=== PATIENT | female | born 1990 | race Caucasian/White ===

== ENCOUNTER 2017-04-25 14:37 | Emergency (ER) | payer OTHER, SELFPAY | END 2017-04-25 16:15 | disposition home or self-care (01) | PROVIDERS: Emergency Provider Nurse Practitioner Family; Family Provider Internal Medicine; Visit Provider Nurse Practitioner Family | DX: J20.9 Acute bronchitis, unspecified (principal) | CPT/HCPCS: 99201 ==

== ENCOUNTER 2017-05-14 16:22 | Emergency (ER) | payer OTHER, SELFPAY ==
[2017-05-14 17:07] VITALS: BP 113/62; PULSE 65; RESP 20; TEMP 36.6; O2SAT 100; BMI 22.2
--- NOTE | 2017-05-14 17:29 | HMH.EDUTC ---
[facility] [place] Disposition Clinical Impression: Sinusitis Qualifiers: Sinusitis location: other Chronicity: unspecified Qualified Code(s): J32.9 - Chronic sinusitis, unspecified Disposition: Home, Self-Care Condition on Discharge: Good Instructions: Sinusitis, Sinus Headache, DI for Sinusitis Additional Instructions: Start antibiotic. Sinus infections may take 2-3 days to notice much improvement so be sure to use conservative measures as discussed for symptoms Flonase 2 spray in each nostril daily to help with nasal congestion, sinus an ear pressure/inflammation Lots of Fluids Sleep elevated Humidifer/vaporizer Augmentin can cause GI effects. Probiotics may help to prevent these symptoms Prescriptions: Amoxicillin/Potassium Clav [Augmentin 875-125 Tablet] 1 tab PO Q12H #14 tab Fluticasone Propionate [Flonase 50mcg nasal spray 16gm] 2 spr NS DAILY #1 bottle predniSONE [Prednisone 20mg Tab] 20 mg PO BID #10 tab Referrals: Nikko Victor [Primary Care Provider] - Time of Disposition: 17:41 Medical Decision Making Vital Signs: 05/14/17 17:07 Temperature 97.9 F Temperature Source Temporal Artery Scan Pulse Rate [Brachial] 65 Respiratory Rate 20 Blood Pressure [Right Arm] 113/62 Blood Pressure Mean [Right Arm] 79 Blood Pressure Source [Right Arm] Automatic Cuff Blood Pressure Position [Right Arm] Sitting 02 Sat by Pulse Oximetry 100 Oxygen Delivery Method Room Air - Ty Inquiry Pt receiving controlled substance: No Ty was queried for this patient: No [facility] [place] HPI - General Stated complaint: Sinus pressure, swelling, pain Mode of Arrival: Ambulatory Source of Information: Patient Limitations: No Limitations Description of Symptoms (Recalled from Triage Doc. by RN): SEVERE SINUS PRESSURE, H/A, EAR PAIN, OVER 1 WEEK HEENT Symptoms (Recalled from RN notes): Yes Resp Symptoms (Recalled from RN notes): No Skin Symptoms (Recalled from RN notes): No MS Symptoms (Recalled from RN notes): No Functional Status (Recalled from RN notes): NA - History of Present Illness Provider Complaint: Patient state that she has been having sinus pain and pressure now for several weeks State that she thought it was starting to get better but then it returned and was worse than in the begining States that she is having pain and pressure in her sinuses State that she feels the pressure in her ears, teeth and behind her eyes - Related Data Previous Rx's Medication Instructions Recorded Amoxicillin/Potassium Clav 1 tab PO Q12H #14 tab 05/14/17 [Augmentin 875-125 Tablet] Fluticasone Propionate [Flonase 2 spr NS DAILY #1 bottle 05/14/17 50mcg nasal spray 16gm] predniSONE [Prednisone 20mg 20 mg PO BID #10 tab 05/14/17 Tab] Allergies Allergy/AdvReac Type Severity Reaction Status Date / Time No Known Allergies Allergy Verified 05/14/17 17:12 - Worker's Comp Is this a Worker's Comp case?: No [facility] History I have reviewed the patient's past medical history: Yes Medical History: Denies:: Cancer, Diabetes Mellitus Type 1, Diabetes Mellitus Type 2, MRSA Other Surgeries: Yes: Other (loop recorder implanted 2016) Amputation: No - *Social History Smoking Status: Never smoker Alcohol Intake: never - Psychiatric History Expresses thoughts of harming self/others: None Suicide Plan Description: No Plan *Family Hx:: Non-contributory ROS Obtained: Yes All systems reviewed & no additional complaints - ENT Ears, Nose, Mouth, and Throat: Reports sinus pain, Reports sinus pressure Physical Exam - General General appearance: alert, in no apparent distress - Expanded ENT Exam Nose exam: Present: sinus tenderness, other (complains of pressure like feeling in ears, eyes and pain in upper teeth, tenderness maxilary sinus) - Respiratory Respiratory exam: Present: normal lung sounds bilaterally. Absent: respiratory distress - Cardiovascular Cardiovascular exam: Present: regular rate, normal rhythm. Absent:
--- NOTE | 2017-05-14 17:33 | ED_ITS ---
[facility] [place] Disposition Clinical Impression: Sinusitis Qualifiers: Sinusitis location: other Chronicity: unspecified Qualified Code(s): J32.9 - Chronic sinusitis, unspecified Disposition: Home, Self-Care Condition on Discharge: Good Instructions: Sinusitis, Sinus Headache, DI for Sinusitis Additional Instructions: Start antibiotic. Sinus infections may take 2-3 days to notice much improvement so be sure to use conservative measures as discussed for symptoms Flonase 2 spray in each nostril daily to help with nasal congestion, sinus an ear pressure/inflammation Lots of Fluids Sleep elevated Humidifer/vaporizer Augmentin can cause GI effects. Probiotics may help to prevent these symptoms Prescriptions: Amoxicillin/Potassium Clav [Augmentin 875-125 Tablet] 1 tab PO Q12H #14 tab Fluticasone Propionate [Flonase 50mcg nasal spray 16gm] 2 spr NS DAILY #1 bottle predniSONE [Prednisone 20mg Tab] 20 mg PO BID #10 tab Referrals: Nikko Victor [Primary Care Provider] - Time of Disposition: 17:41 Medical Decision Making Vital Signs: 05/14/17 17:07 Temperature 97.9 F Temperature Source Temporal Artery Scan Pulse Rate [Brachial] 65 Respiratory Rate 20 Blood Pressure [Right Arm] 113/62 Blood Pressure Mean [Right Arm] 79 Blood Pressure Source [Right Arm] Automatic Cuff Blood Pressure Position [Right Arm] Sitting 02 Sat by Pulse Oximetry 100 Oxygen Delivery Method Room Air - Ty Inquiry Pt receiving controlled substance: No Ty was queried for this patient: No [facility] [place] HPI - General Stated complaint: Sinus pressure, swelling, pain Mode of Arrival: Ambulatory Source of Information: Patient Limitations: No Limitations Description of Symptoms (Recalled from Triage Doc. by RN): SEVERE SINUS PRESSURE , H/A, EAR PAIN, OVER 1 WEEK HEENT Symptoms (Recalled from RN notes): Yes Resp Symptoms (Recalled from RN notes): No Skin Symptoms (Recalled from RN notes): No MS Symptoms (Recalled from RN notes): No Functional Status (Recalled from RN notes): NA - History of Present Illness Provider Complaint: Patient state that she has been having sinus pain and pressure now for several weeks State that she thought it was starting to get better but then it returned and was worse than in the begining States that she is having pain and pressure in her sinuses State that she feels the pressure in her ears, teeth and behind her eyes - Related Data Previous Rx's Medication Instructions Recorded Amoxicillin/Potassium Clav 1 tab PO Q12H #14 tab 05/14/17 [Augmentin 875-125 Tablet] Fluticasone Propionate [Flonase 2 spr NS DAILY #1 bottle 05/14/17 50mcg nasal spray 16gm] predniSONE [Prednisone 20mg 20 mg PO BID #10 tab 05/14/17 Tab] Allergies Allergy/AdvReac Type Severity Reaction Status Date / Time No Known Allergies Allergy Verified 05/14/17 17:12 - Worker's Comp Is this a Worker's Comp case?: No [facility] History I have reviewed the patient's past medical history: Yes Medical History: Denies:: Cancer, Diabetes Mellitus Type 1, Diabetes Mellitus Type 2, MRSA Other Surgeries: Yes: Other (loop recorder implanted 2016) Amputation: No - *Social History Smoking Status: Never smoker Alcohol Intake: never - Psychiatric History Expresses thoughts of harming self/others: None Suicide Plan Description: No Plan *Fam
== END 2017-05-14 17:48 | disposition home or self-care (01) ==
PROVIDERS: Emergency Provider Nurse Practitioner; Family Provider Internal Medicine; PCP Internal Medicine
DX: J32.9 Chronic sinusitis, unspecified (principal)
CPT/HCPCS: 99202

== ENCOUNTER → 2017-10-20 08:25 | Outpatient (CLI) | payer BC, SELFPAY ==
--- NOTE | 2017-10-20 08:29 | US_ITS ---
US abdomen limited History:Right upper quadrant pain Ordering Physician:Nikko Victor Patient Age: 27 years Comparison:None Findings: Pancreas:Unremarkable. No obvious mass or abnormal fluid collection. No ductal dilatation Liver:No focal liver lesions demonstrated. Homogeneous echogenicity. No intrahepatic biliary ductal dilatation evident Right Kidney:Unremarkable. Normal size and echogenicity. No hydronephrosis Gallbladder:No gallstones, gallbladder wall thickening, pericholecystic fluid, or biliary dilatation. Impression:Negative gallbladder/right upper quadrant ultrasound
== END ==
PROVIDERS: Family Provider Internal Medicine; PCP Internal Medicine; Visit Provider Internal Medicine
DX: R10.11 Right upper quadrant pain (principal)
CPT/HCPCS: 76705

== ENCOUNTER → 2017-12-14 15:25 | Outpatient (CLI) | payer BC, SELFPAY | PROVIDERS: PCP Internal Medicine; Visit Provider Internal Medicine | DX: M53.3 Sacrococcygeal disorders, not elsewhere classified (principal) ==

== ENCOUNTER → 2019-04-12 10:12 | Outpatient (CLI) | payer BC, SELFPAY ==
--- NOTE | 2019-04-12 10:20 | CT_ITS ---
PROCEDURE: CT ABDOMEN PELVIS WO CON CLINICAL INDICATION: LLQ PAIN Intermittent lower abdominal pain the COMPARISON: ABDPELW/O CT ABD PELVIS W/O CONTRAST from 03/10/2014 PTV US PELVIS-TRANSVAGINAL ONLY from 02/21/2016 ABDLM US abdomen limited from 10/20/2017 TECHNIQUE: Axial images obtained with sagittal and coronal reformats. All CT scans at the facility use one or more dose reduction, viz: automated exposure control, ma/kV adjustment per patient size (including targeted exams where dose is matched to indication, i.e. head), or iterative reconstruction technique. FINDINGS: LOWER THORAX: No acute finding ABDOMEN & PELVIS: The liver, spleen, adrenal glands, pancreas, kidneys, and gallbladder have an unremarkable unenhanced appearance. No evidence of appendicitis. No ureteral or renal calculi. No evidence of diverticulitis. There is an IUD in place. In the right adnexal region there is a 6.7 x 3.6 cm cystic area which is contiguous with the right and posterior aspect of the urinary bladder. What appears to represent a normal ovary is present anterior to this region. This may represent a prominent bladder diverticulum having a similar appearance on 03/10/2014. This could be confirmed with repeat exam with IV contrast with delayed images/CT urogram. No intestinal obstruction or free air. There is a mild amount of retained colonic feces. IMPRESSION: 1. No acute finding. 2. Probable prominent bladder diverticulum on the right. 3. Mild amount of retained colonic feces Dictated by: Errol Rhodes MD 04/12/2019 15:40 Electronically signed by Errol Rhodes MD in [place] 04/12/2019 15:40
== END ==
PROVIDERS: PCP Internal Medicine; Visit Provider Internal Medicine
DX: R10.32 Left lower quadrant pain (principal)
CPT/HCPCS: 74176

== ENCOUNTER 2021-07-04 08:59 | Emergency (ER) | payer BC, SELFPAY ==
[2021-07-04] VITALS (9 sets, daily range): BP systolic 98–128; BP diastolic 62–86; PULSE 44–53; RESP 13–18; TEMP 36.8–36.9; O2SAT 96–100; BMI 25.5
--- NOTE | 2021-07-04 09:16 | ECG_ITS ---
APPROVED REPORT Exam: Resting ECG HR:40 bpm ECG Measurements Heart Rate 40 AXES QRSd 86 QRS 68 QT 464 T 66 QTc 397 Conclusion Sinus bradycardia Incomplete right bundle branch block, unchanged from prior. UNCONFIRMED REPORT Electronically signed by : Geoffrey Samayoa MD 07/05/2021 16:04:21
--- NOTE | 2021-07-04 09:18 | XR_ITS ---
FINAL REPORT CLINICAL HISTORY: chest pain, palpitations FINDINGS: The heart size is normal. The mediastinum is normal. There is no focal infiltrate or edema. There are no pleural effusions. There is no pneumothorax. There is no osseous abnormality. IMPRESSION: No acute cardiopulmonary process Reviewed, Interpreted and Dictated by Simone Reid III, MD Transcribed by jAay Rocha Authenticated by Simone Reid III, MD on 07/04/2021 10:00:54 AM [facility]
--- NOTE | 2021-07-04 09:34 | PC.NURSE ---
pt to xray
--- NOTE | 2021-07-04 09:43 | HMH.EDDIZZ ---
ED Disposition Clinical Impression: Symptomatic bradycardia Disposition: Home, Self-Care Condition on Discharge: Good Instructions: DI for Bradycardia Referrals: Nikko Victor [Primary Care Provider] - Stefan Burkett MD [Staff Physician] - - Critical Care Critical Care Time: No Attestation: On 07/04/21, the high probability of a clinically significant, sudden or life threatening deterioration of the following system(s) required my full and direct attention, intervention and personal management. The time I documented below is in addition to time spent performing reported procedures but includes the following listed in this critical care notation. Medical Decision Making - Medical Records Medical records reviewed: Yes: I reviewed the patient's medical records. - Ty Inquiry Pt receiving controlled substance: No Vital Signs: 07/04/21 09:13 07/04/21 09:30 07/04/21 09:33 Temperature 98.5 F 98.2 F Temperature Source Oral Oral Pulse Rate 46 L Pulse Rate [Left] 48 L 53 L Respiratory Rate 18 16 16 Blood Pressure 109/72 L Blood Pressure [Right Arm] 128/86 128/70 Blood Pressure Mean 88 Blood Pressure Mean [Right Arm] 100 89 Blood Pressure Source [Right Arm] Automatic Cuff Blood Pressure Position [Right Arm] Sitting 02 Sat by Pulse Oximetry 100 100 100 Oxygen Delivery Method Room Air 07/04/21 10:00 07/04/21 10:31 07/04/21 11:00 Temperature Temperature Source Pulse Rate 44 L 52 L 44 L Pulse Rate [Left] Respiratory Rate 16 14 13 Blood Pressure 105/69 L 112/64 98/62 L Blood Pressure [Right Arm] Blood Pressure Mean 79 Blood Pressure Mean [Right Arm] Blood Pressure Source [Right Arm] Blood Pressure Position [Right Arm] 02 Sat by Pulse Oximetry 100 99 98 Oxygen Delivery Method 07/04/21 11:30 Temperature Temperature Source Pulse Rate 53 L Pulse Rate [Left] Respiratory Rate 15 Blood Pressure 111/65 Blood Pressure [Right Arm] Blood Pressure Mean Blood Pressure Mean [Right Arm] Blood Pressure Source [Right Arm] Blood Pressure Position [Right Arm] 02 Sat by Pulse Oximetry 100 Oxygen Delivery Method - Lab Data Lab Results 07/04/21 09:30: WBC 6.0, RBC 4.85, Hgb 15.1, Hct 46.9, MCV 96.7, MCH 31.2, MCHC 32.2, RDW 13.4, Plt Count 261, MPV 9.3, Neut % (Auto) 63.7, Lymph % (Auto) 27.5, [place] % (Auto) 5.2, Eos % (Auto) 2.1, Baso % (Auto) 1.4, Neut # (Auto) 3.8, Lymph # (Auto) 1.7, [place] # (Auto) 0.3, Eos # (Auto) 0.1, Baso # (Auto) 0.1 07/04/21 09:30: Sodium 139, Potassium 4.0, Chloride 104, Carbon Dioxide 26, Anion Gap 13.0, BUN 12, Creatinine 0.80, Estimated Creat Clear 129, Estimated GFR 83, Est GFR ( Amer) 101, Glucose 95, Calcium 9.0, Total Bilirubin 0.5, AST 36, ALT 18, Alkaline Phosphatase 50, Troponin I < 0.01, NT-Pro-B Natriuret Pep 86.2, Total Protein 7.5, Albumin 4.8, Globulin 2.7, Albumin/Globulin Ratio 1.8 Result diagrams: 07/04/21 09:30 07/04/21 09:30 Orders (Tests/Meds): ED MEDICATIONS Generic Name Dose Route Start Last Admin Trade Name Freq PRN Reason Stop Dose Admin Sodium Chloride 10 ml 07/04/21 09:25 Sodium Chloride 0.9% 10ml Flush Syringe IV 08/03/21 09:24 NEEDED PRN Maintain IV Site ORDERS Category Date Time Status CA 30 day event monitor Stat Exams 07/04/21 12:03 Ordered Troponin I Q3H Lab 07/04/21 12:30 Ordered Troponin I Q3H Lab 07/04/21 15:30 Ordered - Radiology Data #1 Image(s): Chest Image Reviewed: Yes I reviewed the patient's radiology results, Yes I reviewed the patient's radiology image, Yes I have reviewed radiologist's interpretation - ECG Data Tracing #1 I reviewed this ECG and interpreted as documented below: Bradycardic rate of 40 bpm, normal QTC. Irregular rhythm with slow ventricular response. ECG initial impression date: 07/04/21 ECG initial impression time: 09:16 - Reevaluation(s) Time: 12:12 Reevaluation #1: On reevaluation, patient is
[2021-07-04 09:49] LABS: Basophils # 0.1 K/mm3 (0-0.2); Basophils % 1.4 % (0.1-2.0); Eosinophils # 0.1 K/mm3 (0.0-0.4); Eosinophils % 2.1 % (0.1-12.0); Hematocrit 46.9 % (37.0-47.0); Hemoglobin 15.1 g/dL (12.2-16.2); Lymphocytes # 1.7 K/mm3 (0.7-4.5); Lymphocytes % 27.5 % (10-50); Mean Corpuscular HGB Conc 32.2 g/dL (31.8-35.4); Mean Corpuscular Hemoglobin 31.2 pg (27.0-31.2); Mean Corpuscular Volume 96.7 fl (81-99); Mean Platelet Volume 9.3 fl (7.4-10.4); Monocytes # 0.3 K/mm3 (0.1-1.0); Monocytes % 5.2 % (1.7-9.3); Neutrophils # 3.8 K/mm3 (1.8-7.8); Neutrophils % 63.7 % (37.0-80.0); Platelet Count 261 K/mm3 (142-424); Red Blood Count 4.85 M/mm3 (4.20-5.40); Red Cell Distribution Width 13.4 % (11.5-17.5)
[2021-07-04 09:53] LABS: Alanine Aminotransferase 18 U/L (12-78); Albumin Level 4.8 g/dl (3.5-5.0); Albumin/Globulin Ratio 1.8 (1.1-1.8); Alkaline Phosphatase 50 U/L (38-126); Aspartate Amino Transferase 36 U/L (14-36); Bilirubin,Total 0.5 mg/dl (0.2-1.3); Blood Urea Nitrogen 12 mg/dl (7-17); Carbon Dioxide 26 mmol/L (22.0-30.0); Chloride 104 mmol/L (98-107); Creatinine Clearance Estimated 129 mL/min (50-200); Estimated Glomerular Filt Rate 83 ml/min (>60); GFR (African American) 101 ML/MIN (>60); Globulin 2.7 g/dL (1.3-3.2); Glucose 95 mg/dl (74-100); Sodium 139 mmol/L (136-145); Total Protein,Serum 7.5 g/dl (6.3-8.2)
[2021-07-04 10:05] LABS: NT Pro Brain Natriuretic Pep. 86.2 pg/mL (0-125)
[2021-07-04 10:07] LABS: Troponin I < 0.01 ng/ml (0.00-0.034)
--- NOTE | 2021-07-04 10:36 | PC.NURSE ---
cardiology called for consult, they are to come see her
--- NOTE | 2021-07-04 10:47 | PC.NURSE ---
pt given warm blankets, pt states no other needs at this time
--- NOTE | 2021-07-04 11:00 | PC.NURSE ---
marisol thrasher called down returning called, notified her of pt, states she will be down soon as she can, she has consults on the floor also
--- NOTE | 2021-07-04 11:55 | PC.NURSE ---
vitor thrashern at [facility]
--- NOTE | 2021-07-04 12:01 | PC.NURSE ---
notifed RT that per marisol thrasher she is going to be ordering an 30 day event monitor for pt, RT states they are going to check availability call me back
--- NOTE | 2021-07-04 12:03 | PC.NURSE ---
RT states they do have an event monitor, states to send pt to their department upon d/c from ED to get monitor on
--- NOTE | 2021-07-04 12:03 | HMH.CNCARD ---
History of Present Illness Consult date: 07/04/21 Requesting physician: Darryl Calderon Chief complaint: dizziness History of present illness: This is a 30-year-old white female who presented to the emergency department with complaints of dizziness and an abnormal heart rate. She states that this started around 8 PM last night while she was driving. She states she had sudden onset of dizziness and felt as if her heart were skipping beats. She states that this persisted through the night and was still going on this morning so she decided to come to the emergency department here at [facility]. The patient is a cardiology patient for a history of POTS. She is currently taking bisoprolol 2.5 mg daily. She states that she has noticed that her heart rate has been running on the low side. She previously had a loop recorder in place but this has since been removed. She denies any chest pain or pressure. She denies any shortness of breath or edema. She denies any fever, chills, nausea, vomiting, diarrhea, PND orthopnea. He states that she just feels like her heart is beating slow and it was not beating correctly. On arrival here at [facility] her heart rate is low with a minimum heart rate down to 40 to 44 bpm. [facility] History I have reviewed the patient's past medical history: Yes Medical History: Reports:: Cancer, Palpitations Denies:: Diabetes Mellitus Type 1, Diabetes Mellitus Type 2, MRSA *Have you ever received a pneumonia vaccine?: No *Have you received a flu vaccine this season?: No Comment:: POTS Laterality Cases: Bilateral: Tonsillectomy Other Surgeries: Yes: No Previous Surgery, , Other Amputation: No Fractures: No - *Social History Smoking Status: Former smoker Alcohol Intake: never Alcohol Intake Frequency:: other Substance Use Type: denies use *Occupational Status:: employed Household Members: spouse *Travel in the last 8 weeks: None Family Hx:: Cancer, Diabetes, Hypertension, Hyperlipidemia Meds Home Medications Medication Instructions Recorded Confirmed Type nebivolol 2.5 mg tablet 2.5 mg PO DAILY 12/24/18 04/04/21 History Saccharomyces boulardii 250 mg 250 mg PO BID 07/06/19 04/04/21 History capsule norethindrone 1 mg-ethinyl 1 tab PO DAILY #28 tab 06/12/21 Rx estradiol 20 mcg (21)-iron 75 mg (7) tablet Allergies Allergy/AdvReac Type Severity Reaction Status Date / Time No Known Allergies Allergy Verified 04/04/21 10:08 Exam Vital signs and Labs for Last 24 Hours: Temp Pulse Resp BP Pulse Ox 98.2 F 53 L 15 111/65 100 07/04/21 09:33 07/04/21 11:30 07/04/21 11:30 07/04/21 11:30 07/04/21 11:30 Laboratory Results - last 24 hr 07/04/21 09:30: WBC 6.0, RBC 4.85, Hgb 15.1, Hct 46.9, MCV 96.7, MCH 31.2, MCHC 32.2, RDW 13.4, Plt Count 261, MPV 9.3, Neut % (Auto) 63.7, Lymph % (Auto) 27.5, [place] % (Auto) 5.2, Eos % (Auto) 2.1, Baso % (Auto) 1.4, Neut # (Auto) 3.8, Lymph # (Auto) 1.7, [place] # (Auto) 0.3, Eos # (Auto) 0.1, Baso # (Auto) 0.1 07/04/21 09:30: Sodium 139, Potassium 4.0, Chloride 104, Carbon Dioxide 26, Anion Gap 13.0, BUN 12, Creatinine 0.80, Estimated Creat Clear 129, Estimated GFR 83, Est GFR ( Amer) 101, Glucose 95, Calcium 9.0, Total Bilirubin 0.5, AST 36, ALT 18, Alkaline Phosphatase 50, Troponin I < 0.01, NT-Pro-B Natriuret Pep 86.2, Total Protein 7.5, Albumin 4.8, Globulin 2.7, Albumin/Globulin Ratio 1.8 I & O for Last 24 hours: Intake & Output 07/01/21 07/02/21 07/03/21 07/04/21 23:59 23:59 23:59 23:59 Weight 178 lb Narrative: EKG shows sinus bradycardia with a rate of 52 bpm. Telemetry strip shows sinus rhythm with a rate of 44 bpm. - Constitutional no acute distress, average body habitus - *Routine HEENT Exam Head: Present: normocephalic, atraumatic Eye: Present: EOMI, PERRL ENT: Present: mucous membranes moist - *Routine Neck Exam Present: supple, full ROM, normal carotid upstroke. Absent:
== END 2021-07-04 12:22 | disposition home or self-care (01) ==
LOC: UTC 09:01 → ER 09:12
PROVIDERS: Emergency Medicine; Emergency Provider Nurse Practitioner Family; PCP Internal Medicine
DX: R00.1 Bradycardia, unspecified (principal); R00.2 Palpitations; R55 Syncope and collapse; R51.9 Headache, unspecified; R50.9 Fever, unspecified; G47.33 Obstructive sleep apnea (adult) (pediatric); Z79.899 Other long term (current) drug therapy; Z87.891 Personal history of nicotine dependence; Z82.49 Family history of ischemic heart disease and other diseases of the circulatory system; Z83.3 Family history of diabetes mellitus; Z83.438 Family history of other disorder of lipoprotein metabolism and other lipidemia; Z80.9 Family history of malignant neoplasm, unspecified
CPT/HCPCS: 71045; 80053; 83880; 84484; 85025; 93005; 93270; 99285

== ENCOUNTER → 2021-07-17 14:23 | Outpatient (CLI) | payer BC, SELFPAY ==
--- NOTE | 2021-07-17 14:24 | CA_ITS ---
APPROVED REPORT Exam: Exercise Treadmill Technologist: Leonela Martell, Ht: 5 ft 10 in Wt: 185 lbs BSA: 2.02 m2 HR: 71 bpm BP: 126/76 mmHg Medical History Medications: Probiotic,,,,, Macrobid,,,,, Junel,,,,, Stress Test Details Test: Maik HR Resting HR: 88 bpm Max Heart Rate (APMHR): 188.920424 bpm Max HR Achieved: 183 bpm Target HR (85% APMHR): 159.043273 bpm % of APMHR: 97.34 Recovery HR: 100 bpm BP Resting BP: 138/88 mmHg Max BP: 165/84 mmHg Recovery BP: 139.0/71.0 mmHg ECG Resting ECG: NSR, PAC Clinical Exercise duration: 09:44 min Highest Stage Achieved: Stage 4: 4.2 mph at 16% grade. Exercise capacity: 10.1 METs Stress ECG Conclusion Exercised 9:44 on Maik Protocol into Stage IV Max HR: 183 % of PM: 97% Max BP: 165/84 METs: 10.1 Test stopped due to: SOA, fatigue. Symptoms: No CP. Arrhythmias/Ectopy: Occ PAC, occasional isolated PVC. ST-T Changes: NS Twave changes. Conclusion: within normal GXT. GXT only (no imaging) Test Summary REST . . . . . . . Resting REST . . . . . . . Standing REST 03:29 0.0 0.0 88 . 138/ 88 . . Stage 1 01:00 10.0 1.7 108 . . . . Stage 1 02:00 10.0 1.7 118 . . . . Stage 1 03:00 10.0 1.7 116 . 150/ 85 . . Stage 2 01:00 12.0 2.5 132 . . . . Stage 2 02:00 12.0 2.5 140 . 156/ 80 . . Stage 2 03:00 12.0 2.5 141 . 156/ 80 . . Stage 3 01:00 14.0 3.4 158 . . . . Stage 3 02:00 14.0 3.4 165 . . . . Stage 3 03:00 14.0 3.4 163 . 158/ 80 . . Stage 4 00:44 16.0 4.2 181 . . . Stop exercise at 09:44 RECOVERY 01:00 0.0 0.0 155 . . . . RECOVERY 02:00 0.0 0.0 120 . 165/ 84 . . RECOVERY 03:00 0.0 0.0 96 . 140/ 86 . . RECOVERY 04:00 0.0 0.0 104 . 140/ 86 . . RECOVERY 05:00 0.0 0.0 100 . 140/ 85 . . RECOVERY 06:00 0.0 0.0 85 . 140/ 85 . . RECOVERY 06:35 0.0 0.0 97 . 139/ 71 . . Electronically signed by : Alverto Cisse MD 07/17/2021 19:18:13
--- NOTE | 2021-07-17 14:24 | CA_ITS ---
APPROVED REPORT EXAM: Comprehensive 2D, Doppler, and color-flow Echocardiogram Artist Model: Gretchen Laird CRT Ht: 5 ft 10 in Wt: 185lbs BSA: 2.02 BP: 132/81 mmHg Indications: Chest Pain, Shortness of Breath, Palpitations, POTS, hr varied thru out the exam 2D Dimensions LVOT 1.94 cm (M/F) 1.5-2.5 LA Volume 31.10 mL LA Volume Index 15.40 mL/m2 (M/F) 16-34 M-Mode Dimensions RVDd 2.75 cm (0.9-2.6) LA Diam 2.74 cm (1.9-4.0) LVDd 5.01 cm (3.5-5.7) Ao Diam 3.15 cm (2.0-3.7) LVDs 3.36 cm (3.5-5.7) IVSd 0.78 cm (0.6-1.1) PWd 0.67 cm (0.6-1.1) EF (Teich) 61.20% FS 32.90% EDV (Teich) 118.80 mL ESV (Teich) 46.10 mL LV Diastology E Decel Time 233.00 (160-240 msec) E/A Ratio 1.79 MED E' 7.00 (< 7 cm/sec) MED A' 12.00 cm/s E'/MED E' Ratio 15.84 (>14) LAT E' 13.70 (<10 cm/sec) LAT A' 13.30 cm/s E/LAT E' Ratio 8.09 (>14) Aortic Valve AO Peak GR. 6.80 mmHg Mitral Valve MV A Velocity 62.00 (40-130 cm/s) E/A Ratio 1.79 MV Decel. Time 233.00 (160-240 ms) Pulmonary Valve PV Peak Velocity 198.00 (50-150 cm/s) Tricuspid Valve TR P. Velocity 185.00 cm/s Left Ventricle Left atrium is normal size, left ventricle is normal size, there is no concentric left ventricular hypertrophy, visually estimated ejection fraction 55% with no regional wall motion abnormality, diastolic parameters are within normal range. Right Ventricle Right atrium and right ventricle are normal size and contractility. Aortic Valve Aortic valve is grossly normal, there is no aortic stenosis or aortic insufficiency. Mitral Valve Mitral valve grossly normal, there is trace mitral regurgitation. Tricuspid Valve Tricuspid grossly normal, there is trace tricuspid regurgitation tricuspid regurgitation jet velocity is inadequate for calculation of the right ventricular systolic pressure. Pulmonic Valve Pulmonic valve is poorly visualized. Great Vessels Aortic root is normal size. Inferior vena cava is normal size with normal inspiratory collapse. Pericardium No significant pericardial effusion. Conclusion 1. Normal left ventricular size, preserved left ventricular systolic function, visually estimated ejection fraction 55% with no regional wall motion abnormality, diastolic parameters are within normal range. 2. Trace mitral and tricuspid regurgitation. 3. No significant pericardial effusion. 4. Inferior vena cava normal size with normal inspiratory collapse. Electronically signed by : Alverto Cisse MD 07/17/2021 19:44:26
== END ==
LOC: RT 14:24
PROVIDERS: PCP Internal Medicine; Visit Provider Nurse Practitioner Family
DX: R42 Dizziness and giddiness (principal); I49.8 Other specified cardiac arrhythmias; R00.1 Bradycardia, unspecified; R00.2 Palpitations
CPT/HCPCS: 93017; 93306

== ENCOUNTER → 2022-06-11 07:53 | Outpatient (CLI) | payer BC, SELFPAY ==
[2022-06-11 08:43] LABS: Basophils # 0.1 K/mm3 (0-0.2); Basophils % 2.2 % (0.1-2.0); Eosinophils # 0.1 K/mm3 (0.0-0.4); Eosinophils % 2.2 % (0.1-12.0); Hematocrit 43.4 % (37.0-47.0); Hemoglobin 14.6 g/dL (12.2-16.2); Lymphocytes # 1.5 K/mm3 (0.7-4.5); Lymphocytes % 29.8 % (10-50); Mean Corpuscular HGB Conc 33.5 g/dL (31.8-35.4); Mean Corpuscular Hemoglobin 30.4 pg (27.0-31.2); Mean Corpuscular Volume 90.5 fl (81-99); Mean Platelet Volume 8.9 fl (7.4-10.4); Monocytes # 0.3 K/mm3 (0.1-1.0); Monocytes % 5.2 % (1.7-9.3); Neutrophils % 60.7 % (37.0-80.0); Platelet Count 249 K/mm3 (142-424); Red Blood Count 4.79 M/mm3 (4.20-5.40)
[2022-06-11 09:49] LABS: Alanine Aminotransferase 19 U/L (12-78); Albumin Level 4.5 g/dl (3.5-5.0); Alkaline Phosphatase 47 U/L (38-126); Anion Gap 9.2 mEq/L (5-15); Aspartate Amino Transferase 26 U/L (14-36); Bilirubin,Direct 0.2 mg/dl (0.0-0.4); Bilirubin,Indirect 0.4 mg/dL (0.0-0.9); Bilirubin,Total 0.6 mg/dl (0.2-1.3); Bilirubin,Unconjugated 0.3 mg/dL (0.0-1.1); Blood Urea Nitrogen 11 mg/dl (7-17); Calcium 8.9 mg/dl (8.4-10.2); Carbon Dioxide 28 mmol/L (22.0-30.0); Chloride 107 mmol/L (98-107); Chol/HDL Ratio 3.3 (1-3.5); Cholesterol 191 mg/dl (140-200); Estimated Glomerular Filt Rate 72 ml/min (>60); GFR (African American) 87 ML/MIN (>60); Glucose 87 mg/dl (74-100); HDL Cholesterol 58 mg/dl (40-60); Magnesium 2.1 mg/dl (1.6-2.3); Potassium 4.2 mmoL/L (3.5-5.1); Sodium 140 mmol/L (136-145); Total Protein,Serum 6.8 g/dl (6.3-8.2); Triglycerides 101 mg/dl (30-150); VLDL Cholesterol 20 mg/dL (0-40)
[2022-06-11 10:05] LABS: Free T4 (Free Thyroxine) 1.05 ng/dl (0.78-2.19)
[2022-06-11 10:20] LABS: Thyroid Stimulating Hormone 1.95 uIU/mL (0.465-4.68)
[2022-06-26 22:26] LABS: Triiodothyronine (T3) Reverse 21.5
== END ==
LOC: LAB 07:53
PROVIDERS: PCP Internal Medicine; Visit Provider Physician Assistant
DX: I95.1 Orthostatic hypotension (principal); R00.0 Tachycardia, unspecified; R00.2 Palpitations; R07.9 Chest pain, unspecified; R42 Dizziness and giddiness
CPT/HCPCS: 36415; 80048; 80061; 80076; 83735; 84436; 84439; 84443; 84482; 85025

== ENCOUNTER → 2022-07-09 12:42 | Outpatient (CLI) | payer BC, SELFPAY ==
--- NOTE | 2022-07-09 12:43 | US_ITS ---
FINAL REPORT TECHNIQUE: Real-time grayscale and color ultrasound of the thyroid was performed. CLINICAL HISTORY: cp/palps COMPARISON: None FINDINGS: The thyroid gland is mildly enlarged and measures 5 x 1 x 1.2 cm on the right and 4.6 x 0.9 x 1.4 cm on the left. The isthmus measures 3 mm. There are several small nodules. There is a right 3 x 2 x 2 mm cystic TR 1 nodule, a right 4 x 3 x 2 cystic/solid spongiform TR 1 nodule, a left 4 x 3 x 2 cystic small calcified TR 2 nodule, and a left 2 x 2 x 2 cystic small calcified TR 2 nodule. IMPRESSION: Several small bilateral nodules with no follow-up recommended per TI-RADS criteria. Mildly enlarged thyroid Reviewed, Interpreted and Dictated by Simone Reid III, MD Transcribed by Dayanara Lowery Authenticated and [facility]
== END ==
LOC: RAD 12:43
PROVIDERS: PCP Internal Medicine; Visit Provider Physician Assistant
DX: R07.9 Chest pain, unspecified (principal); R00.2 Palpitations; R00.0 Tachycardia, unspecified; R42 Dizziness and giddiness; I95.1 Orthostatic hypotension
CPT/HCPCS: 76536

== ENCOUNTER 2023-06-25 18:28 | Outpatient (CLI) | payer BC, SELFPAY | END 2023-06-25 23:59 | LOC: LAB.DROPOF 18:28 | PROVIDERS: PCP Student in an Organized Health Care Education/Training Program; Visit Provider Student in an Organized Health Care Education/Training Program | DX: R39.89 Other symptoms and signs involving the genitourinary system (principal) | CPT/HCPCS: 87086 ==

== ENCOUNTER 2023-11-25 10:06 | Day surgery (SDC) | payer BC, SELFPAY ==
--- NOTE | 2023-11-10 15:45 | SUR.PREOP ---
Called to confirm appointment. No answer at this time. Voicemail left with callback number
[2023-11-23 13:13] VITALS: BMI 25.4
[2023-11-25 11:05] LABS: Urine Pregnancy, HCG Qual. Negative (Negative)
[2023-11-25] MEDS: LACTATED RINGERS 1000ML 1,000 ML 25 ML IV (11:05)
[2023-11-25 11:06] VITALS: BP 116/71; PULSE 59; RESP 18; TEMP 36.3; O2SAT 100
[2023-11-25 11:27] VITALS: O2SAT 100
--- NOTE | 2023-11-25 11:29 | P.PNANES_ITS ---
[facility] Disclaimer: The information contained in this section may have been updated after the patient was seen, as this information can be updated by other users. Medical History Diverticulum of bladder Urinary tract infection Interstitial cystitis Chest pain Bradycardia POTS (postural orthostatic tachycardia syndrome) Surgical History History of bladder surgery History of delivery Family History Father Diabetes Mother Cancer breast Social History Smoking Status: Former smoker alcohol intake: never substance use type: denies use current occupational status: employed Travel in the last 8 weeks: None household members: spouse [facility] Anesthesia Checklist Patient Identification Patient Identification: Arm Band Structural Data Admitted From: Home Planned Operative Procedure/s: Colonoscopy Consent for Planned Operative Procedure(s) Verified: Yes Verified Documents: Surgical Consent and History and Physical NPO Status Verified Time NPO: 00:00 Additional verifications Anesthesia Reactions: No Airway Assessment Mallampati Score:: Class I C-Spine Mobility Assessed: Yes TMJ Mobility Assessed: Yes Dentition: Good Dentition Neurological Assessment Level of Consciousness: Awake, Alert and Appropriate Anesthesia Plan Anesthesia Risk discussed: Yes Anesthesia Plan: Verified ASA Class: II Anesthesia Type: MAC
--- NOTE | 2023-11-25 11:51 | P.PCN_ITS ---
Procedure: Date: 11/25/23 Patient Date of :: 1990 Procedure Performed:: Colonoscopy Indications:: The patient is a 33-year-old who presents for colonoscopy evaluation for chronic intermittent lower abdominal pain. Performing Provider:: Severino Benson MD Referring Provider:: Nikko Victor MD Sedation:: See RN record Procedure:: After placing the patient in the left lateral decubitus position, the colono scopy was gently inserted into the rectum and under direct visualization advanced to the cecum which was identified by transillumination in the right lower quadrant, identification of the ileocecal valve, appendiceal orifice, and cecal strap. Color, texture, mucosa, and anatomy of the colon were carefully examined with the scope. Findings:: The quality of the bowel preparation was excellent. Colonoscopy was somewhat difficult secondary to a tortuous sigmoid colon. The patient tolerated the procedure well. The entire examined colon appeared normal. Due to looping of the colonoscope within the sigmoid colon the terminal ileum could not be intubated. The rectum and anal verge appeared normal on retroflexion view. Impression: Normal-appearing colon Tortuous sigmoid colon Recommendations:: Will send prescription for dicyclomine 10 mg, 3-4 times a day as needed to patient's pharmacy Follow-up with referring provider as previously scheduled Complications:: None Estimated blood obtained (mL): 0 Colonoscopy Component Colonoscopy Component Was a colonoscopy performed during today's procedure?: Yes Recommended follow up colonoscopy of at least 10 years?: No If no, follow up colonoscopy recommended in ___ years?: Diagnostic colonoscopy Reason for not recommending >/= 10 yr follow-up interval?: Diagnostic colonoscopy
[2023-11-25 11:55] VITALS: BP 155/66; PULSE 67; RESP 16; TEMP 36.3; O2SAT 97
[2023-11-25 12:05] VITALS: BP 98/60; PULSE 68; RESP 16; O2SAT 99
[2023-11-25 12:15] VITALS: BP 107/67; PULSE 54; RESP 16; O2SAT 100
[2023-11-25 12:22] VITALS: BP 110/69; PULSE 50; RESP 16; O2SAT 100
== END 2023-11-25 12:24 | disposition home or self-care (01) ==
PROVIDERS: PCP Internal Medicine; Visit Provider Internal Medicine
PROC: 0DJD8ZZ Inspection of Lower Intestinal Tract, Via Natural or Artificial Opening Endoscopic (ICD-10-PCS; CPT 45378; principal; 2023-11-25 11:00)
DX: R10.9 Unspecified abdominal pain (principal)
CPT/HCPCS: 45378; 81025; J7120

== ENCOUNTER 2024-10-03 08:51 | Outpatient (CLI) | payer BC, SELFPAY ==
[2024-10-03 09:26] LABS: Basophils % 0.8 % (0.1-2.0); Eosinophils # 0.1 Kmm3 (0.0-0.4); Hematocrit 43.8 % (37.0-47.0); Hemoglobin 14.2 g/dL (12.2-16.2); Immature Granulocytes # 0.02 10^3uL; Immature Granulocytes % 0.4 %; Lymphocytes # 1.5 K/mm3 (0.7-4.5); Lymphocytes % 30.7 % (10-50); Mean Corpuscular HGB Conc 32.4 g/dL (31.8-35.4); Mean Corpuscular Hemoglobin 30.1 pg (27.0-31.2); Mean Corpuscular Volume 92.8 fl (81-99); Mean Platelet Volume 11.2 fl (7.4-10.4); Monocytes # 0.3 K/mm3 (0.1-1.0); Monocytes % 5.5 % (1.7-9.3); Neutrophils % 60.6 % (37.0-80.0); Nucleated Red Blood Cells # 0 10^3/uL; Nucleated Red Blood Cells % 0 %; Platelet Count 236 K/mm3 (142-424); Red Blood Count 4.72 M/mm3 (4.20-5.40); Red Cell Distribution Width 12.2 % (11.5-17.5); Red Cell Distribution Width-SD 41.8 fL; White Blood Count 4.9 K/mm3 (4.8-10.8)
[2024-10-03 09:54] LABS: Hemoglobin A1C 4.6 % (4.0-6.0)
[2024-10-03 09:57] LABS: Chloride 106 mmol/L (98-107); Potassium 4.3 mmoL/L (3.5-5.1); Sodium 138 mmol/L (136-145)
[2024-10-03 09:59] LABS: Alanine Aminotransferase 20 U/L (12-78); Alkaline Phosphatase 56 U/L (38-126); Aspartate Amino Transferase 25 U/L (14-36); Bilirubin,Total 0.7 mg/dl (0.2-1.3); Blood Urea Nitrogen 12 mg/dl (7-17); Estimated Glomerular Filt Rate 63 ml/min (>60); GFR (African American) 76 ML/MIN (>60)
[2024-10-03 10:00] LABS: Calcium 9.3 mg/dl (8.4-10.2); Chol/HDL Ratio 3.1 (1-3.5); Cholesterol 226 mg/dl (140-200); Glucose 93 mg/dl (74-100); HDL Cholesterol 72 mg/dl (40-60); Magnesium 2.1 mg/dl (1.6-2.3); Total Protein,Serum 6.8 g/dl (6.3-8.2); Triglycerides 124 mg/dl (30-150); VLDL Cholesterol 25 mg/dL (0-40)
[2024-10-03 10:11] LABS: Direct LDL Cholesterol 116.15 mg/dL (100-129)
[2024-10-03 10:17] LABS: 25-OH Vitamin D, Total 76.3 ng/mL (30-100)
[2024-10-03 10:30] LABS: Thyroid Stimulating Hormone 2.54 uIU/mL (0.465-4.68)
[2024-10-03 11:06] LABS: Vitamin B12 681 pg/mL (239-931)
[2024-10-03 12:12] LABS: Albumin Level 4.4 g/dl (3.5-5.0); Albumin/Globulin Ratio 1.8 (1.1-1.8); Anion Gap 8.3 mEq/L (5-15); Carbon Dioxide 28 mmol/L (22.0-30.0); Globulin 2.4 g/dL (1.3-3.2)
[2024-10-04 07:11] LABS: Insulin Level Total 6.5 uIU/mL (2.6-24.9)
== END 2024-10-03 23:59 | disposition home or self-care (01) ==
LOC: LAB 08:54
PROVIDERS: PCP Internal Medicine; Visit Provider Obstetrics & Gynecology
DX: Z00.00 Encounter for general adult medical examination without abnormal findings (principal)
CPT/HCPCS: 36415; 80053; 80061; 82306; 82607; 83036; 83525; 83735; 84443; 85025

== ENCOUNTER 2024-10-14 14:41 | Outpatient (CLI) | payer BC, SELFPAY ==
--- OUTSIDE RECORDS SUMMARY | 2024-10-14 14:44 | XMS_ITS | Clinical Summary ---
Author Organization Healthcare Address [address] [id number] Care Team Providers Care Recruitment Consultant Name Role Phone Nikko Victor MD Primary Care Provider [phone] Family History Medical History Relation Name Comments Conversions - Other Brother Joint in stability Conversions - Other Father IDDM (in sulin dependent diabetes mellitus) Diabetes Father Hypertension Father Hypothyroidism Father Conversions - Other Maternal Grandfather Paget disease of bone Breast cancer Mother Conversions - Other Mother Joint la xity Fibromyalgia Mother Arthritis Other 1 Hypertension Other 2 Hypertension Other 3 Conversions - Other Sister Joint la xity Relation Name Status Comments Brother Father Maternal Grandfather Mother Other 1 Other 2 Other 3 Sister Social History Tobacco Use Types Packs/Day Years Used Date Smoking Tobacco: Former Alcohol Use Standard Drinks/Week Comments No 0 (1 standard drink = 0.6 oz pur e alcohol) Comments Unknown Sex and Gender Information Value Date Recorded Sex Assigned at Not on file Legal Sex Female 6:46 PM EDT Gender Identity Not on file Sexual Orientation Not on file Last Filed Vital Signs Vital Sign Reading Time Taken Comments Blood Pressure 99/65 02/23/2019 9:08 AM EDT Pulse 51 02/23/2019 9:08 AM EDT Temperature 37.1 C (98.8 F) 11/30/2018 1:14 PM EDT Respiratory Rate 16 11/30/2018 1:14 PM EDT Oxygen Saturation - - Inhaled Oxygen Concentration - - Weight 85 kg (187 lb 6.3 oz) 02/23/2019 9:08 AM EDT Height 180.3 cm (5' 11 ) 02/23/2019 9:08 AM EDT Body Mass Index 26.14 02/23/2019 9:08 AM EDT Plan of Treatment Not on file Care Teams Recruitment Consultant Relationship Specialty Start Date End Date Nikko Victor MD [address] [place] [address] PCP - General 09/14/20
--- OUTSIDE RECORDS SUMMARY | 2024-10-14 14:44 | XMS_ITS | Data Portability ---
Author Organization [facility] Address [address] [facility] [address] [place] [address] Assessment Encounter Date Assessment Date Assessment LastModified by Organization Details LastModified Time 04/21/2018 04/21/2018 SURGERY DATE: 04/21/2018 PREOPERATIVE DIAGNOSIS: Recurrent urinary infections. POSTOPERATIVE DIAGNOSES: 1. Recurrent urinary infections. 2. Large, wide open bladder diverticulum on the right. 3. Mild urethral stenosis. PROCEDURE: Cystoscopy with urethral dilatation. ANESTHESIA: Local MAC. SURGEON: Adolfo Gamez MD BRIEF HISTORY: The patient is a young, 27-year-old female with recurrent urinary infections. She was previously documented with bladder diverticulum noted on voiding cystourethrogram as a child. This has never been repaired. She has recently had issues with recurrent urinary infections and presents today for further evaluation. She has had radiographic studies of her upper tracts which were normal. OPERATIVE NOTE: After satisfactory sedation, she was placed in the dorsal lithotomy position. Genitalia were prepped and draped in the normal fashion. The #19-Kinyarwanda cystoscope sheath was introduced. Bladder was inspected entirely with 30-and 70-degree lenses. The urethra was snug on the 19-Kinyarwanda sheath. Far lateral to the right ureteral orifice, to the course of the ureter, she had an open mouth diverticulum, quite large. There was no filling defects or abnormality within this diverticulum. The bladder was drained. Cystoscope was removed. The urethra was calibrated upto 28-Kinyarwanda, well tolerated. Xylocaine gel was instilled in the urethra. We will discuss consideration of incision to this diverticulum in the future. She was placed on doxycycline 100 mg p.o. at bedtime. She will follow up with me in [place] in one month. [email or web address] Not available 04/21/2018 11:16:37 Plan of Treatment Reminders Order Date Submit Date Provider Last Modified By Organization Details Last Modified Time Details Appointments None record ed. Lab None record ed. Referral None record ed. Procedures None record ed. Surgeries None record ed. Imaging None record ed. Medication Orders None record ed. Patient TargetsNo targets recorded. Patient InstructionsNo instructions recorded. Reason for Referral None Reported. Results Created Date Observation Date Name Description Value Unit Range Abnormal Flag Note LastModifiedBy Organization Detail LastModifiedTime 05/21/19 19 10/20/2017 US, abdom en No observ ation record ed. [facility] [address], [place], [address], 05/21/2018 14:51:50 Result Notes None recorded. Medical Equipment None Reported. Vitals None Recorded Social History None recorded. Functional Status None recorded. Mental Status None recorded. Family History Nothing Reported. Medical History No medical history recorded. Gynecological HistoryNo gynecological history recorded. Obstetrics History GPAL:G 0 P 0 0 0 0 Past Encounters Encounter ID Performer Location Encounter Start Date Encounter Closed Date Diagnosis/Indication Diagnosis SNOMED-CT Code Diagnosis ICD10 Code Diagnosis Note [id number] ADOLFO GAMEZ MD SURGERY SCHEDULE [address] [place] [address] 04/21/2018 07:04:36 04/21/2018 07:06:40 Health Concerns Section Related Observation LastModified by Organization Detai ls LastModified Time None Recorded Concern Status LastModified by Organization Details LastModified Time None Recorded Advance Directives Directive None Recorded Payers Insurance Date Sequence Insurance Name Policy Number Policy Patino Covered Member ID Patino Member ID Guarantor Name 04/23/2018 1 [place] [id number] Janes Lincoln [id number] [place] [facility] Episode No OBEpisode recorded.
--- NOTE | 2024-10-14 15:00 | MM_ITS ---
PROCEDURE INFORMATION: Exam: Bilateral Screening 3D Mammography Exam date and time: 10/14/2024 2:52 PM Age: 34 years old Clinical indication: Screening mammogram. Baseline screening mammogram TECHNIQUE: Imaging protocol: Bilateral Screening tomosynthesis and 2D mammography including computer-aided detection (CAD) when performed. COMPARISON: No relevant prior studies available. FINDINGS: MAMMOGRAPHY: Breast composition: The breast is heterogeneously dense, which may obscure small masses. Mass: None. Architectural distortion: No new or suspicious architectural distortion. Calcifications: No new or suspicious calcifications are present Asymmetric density: No new or suspicious asymmetric density is present Skin thickening: None. Axillary adenopathy: Mass within the upper outer posterior right breast (possible axillary tail lymph node) should be further assessed with spot views in CC/MLO projection. Ultrasound should also be scheduled. IMPRESSION: 1 cm mass within the upper outer posterior right breast (likely axillary tail lymph node) should be further assessed with spot views in CC/MLO projection. Ultrasound should also be scheduled. ASSESSMENT: BI-RADS Category 0: Incomplete - Need Additional Imaging Evaluation
== END 2024-10-14 23:59 | disposition home or self-care (01) ==
LOC: RAD 14:43
PROVIDERS: PCP Internal Medicine; Visit Provider Obstetrics & Gynecology
DX: Z12.31 Encounter for screening mammogram for malignant neoplasm of breast (principal); N63.11 Unspecified lump in the right breast, upper outer quadrant; Z80.3 Family history of malignant neoplasm of breast
CPT/HCPCS: 77063; 77067

== ENCOUNTER 2024-10-28 13:57 | Outpatient (CLI) | payer BC, SELFPAY ==
--- NOTE | 2024-10-28 14:00 | MM_ITS ---
PROCEDURE INFORMATION: Exam: US Right Breast, Complete MG Right Diagnostic Breast Tomosynthesis MG Right Diagnostic Mammography Exam date and time: 10/28/2024 2:01 PM Age: 34 years old Clinical indication: Recall on the basis of screening mammogram 10/14/2024 for further evaluation of mass within the upper outer posterior right breast (possible axillary tail lymph node). TECHNIQUE: Imaging protocol: Complete ultrasound of all four quadrants of the right breast and the retroareolar regions, including ultrasound of the axilla when performed. Right Diagnostic tomosynthesis and 2D mammography including computer-aided detection (CAD) when performed. Unilateral or bilateral exam. Right Diagnostic mammography including computer-aided detection (CAD) when performed. Unilateral exam. COMPARISON: MG MM DIG SCREENING MAMM BI W/CAD 10/14/2024 2:52 PM FINDINGS: MAMMOGRAPHY: Breast composition: The breast is heterogeneously dense, which may obscure small masses. Density based on the most recent screening mammogram report. Breast mammogram findings: Spot compression shows that the recalled mass is isodense containing a notch and fatty component. ULTRASOUND: Breast ultrasound findings: Targeted sonography in the upper outer quadrant at 10 o'clock 7 cm from the nipple demonstrates a sonographically unremarkable intramammary lymph node measuring 1.0 x 0.3 x 0.9 cm which corresponds to the recalled mammographic mass. Additional images in the retroareolar region are unremarkable. Additional images in the axilla demonstrate a sonographically unremarkable axillary lymph node. IMPRESSION: Screening detected mass corresponds to an unremarkable intramammary lymph node. Annual screening mammogram recommended unless otherwise clinically indicated. ASSESSMENT: BI-RADS Category 2: Benign.
--- OUTSIDE RECORDS SUMMARY | 2024-10-28 14:00 | XMS_ITS | Data Portability ---
Author Organization [facility] Address [address] [facility] [address] [place] [address] Assessment Encounter Date Assessment Date Assessment LastModified [...] and draped in the normal fashion. The #19-[place] cystoscope sheath was introduced. Bladder was inspected entirely with 30-and 70-degree lenses. The urethra was snug on the 19-[place] sheath. Far lateral to the right ureteral orifice, to the course of the ureter, she had an open mouth diverticulum, quite large. There was no filling defects or abnormality within this diverticulum. The bladder was drained. Cystoscope was removed. The urethra was calibrated upto 28-[place], well tolerated. Xylocaine gel was instilled in the urethra. We will discuss consideration of incision to this diverticulum in the future. She was placed on doxycycline 100 mg p.o. at bedtime. She will follow up with me in [place] in one month. [email or web address] Not available 04/21/2018 [...] abdom en No observ ation record ed. [facility] [address], [place], [address], 05/21/2018 14:51:50 Result Notes None recorded. Medical [...] SNOMED-CT Code Diagnosis ICD10 Code Diagnosis Note [id number] ADOLFO GAMEZ MD SURGERY SCHEDULE [address] [place] [address] 04/21/2018 07:04:36 04/21/2018 07:06:40 Health Concerns Section Related Observation LastModified by Organization Detai ls LastModified Time None Recorded Concern Status LastModified by Organization Details LastModified Time None Recorded Advance Directives Directive None Recorded Payers Insurance Date Sequence Insurance Name Policy Number Policy Patino Covered Member ID Patino Member ID Guarantor Name 04/23/2018 1 [place] [id number] Janes Lincoln [id number] [place] [facility] Episode No OBEpisode recorded.
--- OUTSIDE RECORDS SUMMARY | 2024-10-28 14:00 | XMS_ITS | Clinical Summary ---
Author Organization Healthcare Address [address] [id number] Care Team Providers Care Chemistry Intern Name Role Phone Nikko Victor MD Primary Care Provider [phone] Family History Medical History Relation Name Comments [...] of Treatment Not on file Care Teams Chemistry Intern Relationship Specialty Start Date End Date Nikko Victor MD [address] [address] [place] [address] PCP - General 09/14/20
== END 2024-10-28 23:59 | disposition home or self-care (01) ==
LOC: RAD 13:58
PROVIDERS: PCP Internal Medicine; Visit Provider Obstetrics & Gynecology
DX: R92.331 Mammographic heterogeneous density, right breast (principal); N63.11 Unspecified lump in the right breast, upper outer quadrant; Z80.3 Family history of malignant neoplasm of breast
CPT/HCPCS: 76641; 77061; 77065; G0279